=== PATIENT | female | born 1975 | race Caucasian/White ===

== ENCOUNTER 2019-04-19 08:52 | Emergency (ER) | payer MEDICARE, MEDICAID ==
--- NOTE | 2019-04-19 09:44 | EDM.PDOC ---
ED HPI GENERAL MEDICAL PROBLEM - General Chief Complaint: General Stated Complaint: FALL, RIGHT HIP PAIN, HIT HEAD Time Seen by Provider: 04/19/19 09:15 Source of Information: Reports: Patient History Limitations: Reports: No Limitations - History of Present Illness INITIAL COMMENTS - FREE TEXT/NARRATIVE: 43-year-old female who was out at [facility] for chemical dependency treatment, she is on her third day and when she got to the bottom of the stairway she stumbled and hit the left posterior scalp behind her ear, and also fell onto her right hip and left knee. She had hip surgery in November, with a follow-up surgery for infection in the last 2 months. She did not lose consciousness but has significant pain behind her left ear, her hip is feeling better. She is able to ambulate without difficulty. They are trying to get her admitted to a different facility because she cannot tolerate the stairs. Onset: Sudden Duration: Hour(s): (Within the last hour) Location: Reports: Head, Lower Extremity, Left, Lower Extremity, Right Associated Symptoms: Denies: Confusion, Chest Pain, Cough, Nausea/Vomiting, Shortness of Breath, Syncope, Weakness Left Temporal Head Pain Score (Numeric/FACES): 10 Right Hip Pain Score (Numeric/FACES): 7 - Related Data Allergies Allergy/AdvReac Type Severity Reaction Status Date / Time adhesive tape Allergy Itching Verified 04/19/19 09:21 oxycodone Allergy Stomach Verified 04/19/19 09:21 Upset Sulfa (Sulfonamide Allergy Headache Verified 04/19/19 09:21 Antibiotics) Home Meds: Home Meds Calcium Carb, Citrate/Vit D3 [Calcium + D3 ER Tablet] 2 each PO DAILY 04/19/19 [ History] Cefadroxil [Duricef] 500 mg PO Q12HR 04/19/19 [History] Cholecalciferol (Vitamin D3) [Vitamin D3] 1,000 unit PO DAILY 04/19/19 [History] DULoxetine [Cymbalta] 120 mg PO DAILY 04/19/19 [History] DULoxetine [Cymbalta] 120 mg PO DAILY 04/19/19 [History] Dexlansoprazole [Dexilant] 60 mg PO DAILY 04/19/19 [History] Diclofenac Sodium [Voltaren] 75 mg PO BIDMEALS 04/19/19 [History] Dicyclomine [Bentyl] 20 mg PO DAILY 04/19/19 [History] Estradiol [Climara] 1 each TD Q4D 04/19/19 [History] Hydrochlorothiazide [Microzide] 25 mg PO DAILY 04/19/19 [History] Multivitamin with Minerals [Multiple Vitamin] 1 tab PO DAILY 04/19/19 [History] Ondansetron HCl [Zofran] 4 mg PO Q8H 04/19/19 [History] busPIRone [Buspar] 10 mg PO BID 04/19/19 [History] cloNIDine [Catapres] 0.1 mg PO BEDTIME 04/19/19 [History] Past Medical History HEENT History: Reports: Impaired Vision Psychiatric History: Reports: Addiction Immunologic History: Reports: Other (See Below) Other Immunologic History: was septic in with hip infection - Past Surgical History GI Surgical History: Reports: Cholecystectomy Female Surgical History: Reports: Hysterectomy Musculoskeletal Surgical History: Reports: Hip Replacement Dermatological Surgical History: Reports: Other (See Below) Social & Family History - Tobacco Use Smoking Status *Q: Current Some Day Smoker Years of Tobacco use: 19 Packs/Tins Daily: 0.5 - Caffeine Use Caffeine Use: Reports: Coffee - Recreational Drug Use Recreational Drug Use: Yes Drug Use in Last 12 Months: Yes Recreational Drug Type: Reports: Methamphetamine Recreational Drug Use Frequency: Not Used In Over 3 Months ED ROS GENERAL - Review of Systems Review Of Systems: See Below Constitutional: Denies: Fever, Chills HEENT: Denies: Vision Change Respiratory: Denies: Shortness of Breath Cardiovascular: Denies: Chest Pain GI/Abdominal: Denies: Abdominal Pain, Nausea, Vomiting Musculoskeletal: Reports: Leg Pain Skin: Reports: Other (Superficial abrasion on the left knee) Neurological: Reports: Headache ED EXAM, GENERAL - Physical Exam Exam: See Below Exam Limited By: No Limitations General Appearance: Alert, No Apparent Distress Eye Exam: Bilateral Eye: Normal Inspection Head: Other (Very tender to palpation behind the left ear, no deformity, Blackburn sign, hematoma or abrasion.) Neck: Supple, Non-Tender Respiratory/Chest: No Respiratory Distress, Lungs Clear Extremities: Other (Good passive range of motion of the right hip without pain, the left knee has superficial abrasions but no joint tenderness, bony tenderness or deformity) Neurological: Alert, Oriented, No Motor/Sensory Deficits Skin Exam: Warm, Dry Course - Vital Signs Last Recorded V/S: Last Vital Signs Temp 99.0 F 04/19/19 09:19 Pulse 105 H 04/19/19 09:19 Resp 22 H 04/19/19 09:19 BP 143/93 H 04/19/19 09:19 Pulse Ox 97 04/19/19 09:19 - Orders/Labs/Meds Orders: Active Orders 24 hr Category Date Time Status Head wo Cont [CT] Stat Exams 04/19/19 09:31 Taken Meds: Medications Discontinued Medications Generic Name Dose Route Start Last Admin Trade Name Deb PRN Reason Stop Dose Admin Acetaminophen 1,000 mg 04/19/19 09:51 04/19/19 09:54 Tylenol Extra Strength PO 04/19/19 09:52 1,000 mg ONETIME ONE Administration - Re-Assessments/Exams Free Text/Narrative Re-Assessment/Exam: 04/19/19 09:43 CT the head without contrast was obtained. 04/19/19 09:[address] was normal, patient was given 1000 mg of Tylenol. She can return back to [facility]. Departure - Departure Time of Disposition: 10:02 Disposition: DC/Tfer to Other 70 Clinical Impression: Abrasion, left knee, initial encounter Contusion of scalp Qualifiers: Encounter type: initial encounter Qualified Code(s): S00.03XA - Contusion of scalp, initial encounter Contusion of right hip Qualifiers: Encounter type: initial encounter Qualified Code(s): S70.01XA - Contusion of right hip, initial encounter - Discharge Information Instructions: Contusion, [id number] Referrals: PCP,None [Primary Care Provider] - Forms: ED Department Discharge Care Plan Goals: Increase activity as tolerated, Tylenol or ibuprofen will help with discomfort. Recheck next week if not improving satisfactorily. Return sooner if worsening such as persistent nausea or vomiting or other concerns. - My Orders Last 24 Hours: My Active Orders 04/19/19 09:31 Head wo Cont [CT] Stat - Assessment/Plan Last 24 Hours: My Active Orders 04/19/19 09:31 Head wo Cont [CT] Stat
[2019-04-19] MEDS ORDERED: Acetaminophen 500 MG Tab PO ONE (09:51)
--- NOTE | 2019-04-19 10:31 | CT ---
Head wo Cont CLINICAL HISTORY: Headache COMPARISON: None TECHNIQUE: Transverse scans were obtained from the base of the skull through the vertex without IV contrast on a multislice, multidetector CT scanner. Auto dosage reduction and iterative reconstruction techniques employed. FINDINGS: No focal abnormal parenchymal densities identified. There is no mass effect, hemorrhage, or extraaxial collection. The basal cisterns and sulci over the convexities are normal. The ventricles are normal for age. IMPRESSION: No acute intracranial abnormality
== END 2019-04-19 10:03 | disposition other institution (70) ==
LOC: JP.ED 08:52
DX: S00.03XA Contusion of scalp, initial encounter (principal); S70.01XA Contusion of right hip, initial encounter; S80.212A Abrasion, left knee, initial encounter; F17.210 Nicotine dependence, cigarettes, uncomplicated; Z88.8 Allergy status to other drugs, medicaments and biological substances; Z88.6 Allergy status to analgesic agent; W01.198A Fall on same level from slipping, tripping and stumbling with subsequent striking against other object, initial encounter; Z88.2 Allergy status to sulfonamides; Y92.89 Other specified places as the place of occurrence of the external cause
CPT/HCPCS: 70450; 99282; 99284; A9270